=== PATIENT | male | born 1995 | race Caucasian/White ===

== ENCOUNTER 2018-12-05 20:13 | Emergency (ER) | payer BC ==
[~2018-12-05] VITALS: Ht 180.3 cm; Wt 73.0 kg
[2018-12-05 20:28] VITALS: Ht 180.3 cm; Wt 73.0 kg
[2018-12-05] MEDS ORDERED: SOD CHLORIDE 0.9% 1,000 ML IV STA (22:12)
[2018-12-05] MEDS ORDERED: ONDANSETRON 4 MG INJ IV STA (22:12)
[2018-12-05] MEDS ORDERED: FAMOTIDINE 20 MG INJ IV STA (22:12)
[2018-12-06] MEDS ORDERED: FAMO-96 PO (00:09)
[2018-12-06 00:21] VITALS: BP 111/70; PULSE 64; RESP 16
--- NOTE | 2018-12-06 03:53 | ERD ---
ER Documentation Chief Complaint Chief Complaint LUQ & EPIGASTRIC PAIN X 1 WEEK, + NAUSEA HPI 23-year-old male with history of GERD presents to the ED complaining of left upper quadrant and epigastric pain x1 week. He describes the pain as dull, achy and rated as 7 out of 10 intensity. Pain does not radiate. He states eating makes the pain better. He also reports feeling a little bit bloated with some nausea. No vomiting. No diarrhea. No fevers or chills. No other complaints. He states he has been eating less healthy and frozen dinners most recently. No smoking or drinking. ROS All systems reviewed and are negative except as per history of present illness. Medications Home Meds Active Scripts Famotidine* (Pepcid*) 20 Mg Tablet, 20 MG PO BID, #30 TAB Prov:MARGARET BOB PA-C 12/06/18 Allergies Allergies: Coded Allergies: No Known Allergy (Unverified , 12/04/15) PMhx/Soc Medical and Surgical Hx: pt denies Surgical Hx History of Surgery: No Anesthesia Reaction: No Hx Miscellaneous Medical Probl: Yes (GERD) Hx Alcohol Use: No Hx Substance Use: No Hx Tobacco Use: No Smoking Status: Never smoker Physical Exam Vitals Vital Signs Date Temp Pulse Resp B/P (MAP) Pulse Ox O2 O2 Flow FiO2 Time Delivery Rate 12/06/18 98.0 64 16 111/70 98 Room Air 00:21 (84) 12/05/18 97.9 69 18 129/82 99 20:28 (98) Physical Exam Const: No acute distress Head: Atraumatic Eyes: Normal Conjunctiva ENT: Normal External Ears, Nose and Mouth. Neck: Full range of motion. No meningismus. Resp: Clear to auscultation bilaterally Cardio: Regular rate and rhythm, no murmurs Abd: Soft, + mid epigastric tenderness palpation. Negative McBurney's. Negative Marin's. No rebound, no guarding. No distention. Normal bowel sounds Skin: No petechiae or rashes Back: No midline or flank tenderness Ext: No cyanosis, or edema Neur: Awake and alert Psych: Normal Mood and Affect Result Diagram: 12/05/18 2221 12/05/18 2221 Results 24 hrs Laboratory Tests Test 12/05/18 22:21 White Blood Count 5.1 10^3/ul Red Blood Count 4.48 10^6/ul Hemoglobin 13.4 g/dl Hematocrit 39.5 % Mean Corpuscular Volume 88.2 fl Mean Corpuscular Hemoglobin 29.9 pg Mean Corpuscular Hemoglobin Concent 33.9 g/dl Red Cell Distribution Width 11.4 % Platelet Count 217 10^3/UL Mean Platelet Volume 10.6 fl Immature Granulocytes % 0.000 % Neutrophils % 52.0 % Lymphocytes % 37.4 % Monocytes % 8.2 % Eosinophils % 1.6 % Basophils % 0.8 % Nucleated Red Blood Cells % 0.0 /100WBC Immature Granulocytes # 0.000 10^3/ul Neutrophils # 2.7 10^3/ul Lymphocytes # 1.9 10^3/ul Monocytes # 0.4 10^3/ul Eosinophils # 0.1 10^3/ul Basophils # 0.0 10^3/ul Nucleated Red Blood Cells # 0.0 10^3/ul Sodium Level 139 mmol/L Potassium Level 4.2 mmol/L Chloride Level 103 mmol/L Carbon Dioxide Level 25 mmol/L Anion Gap 11 Blood Urea Nitrogen 10 mg/dl Creatinine 0.74 mg/dl Est Glomerular Filtrat Rate mL/min > 60 mL/min Glucose Level 99 mg/dl Calcium Level 10.0 mg/dl Total Bilirubin 2.9 mg/dl Direct Bilirubin 0.00 mg/dl Indirect Bilirubin 2.9 mg/dl Aspartate Amino Transf (AST/SGOT) 25 IU/L Alanine Aminotransferase (ALT/SGPT) 30 IU/L Alkaline Phosphatase 68 IU/L Total Protein 8.0 g/dl Albumin 5.2 g/dl Globulin 2.80 g/dl Albumin/Globulin Ratio 1.85 Lipase 77 U/L Current Medications Medications Dose Sig/Shai Start Time Status Last (Trade) Ordered Route PRN Stop Time Admin Dose Reason Admin Sodium 1,000 ml @ Q1H STAT 12/05/18 DC 12/05/18 Chloride 1,000 mls/hr IV 22:12 22:29 12/05/18 23:11 Ondansetron 4 mg ONCE STAT 12/05/18 DC 12/05/18 HCl (Zofran IV 22:12 22:29 Inj) 12/05/18 22:13 Famotidine 20 mg ONCE STAT 12/05/18 DC 12/05/18 (Pepcid Iv) IV 22:12 22:29 12/05/18 22:13 Procedures/MDM LABS & DIAGNOSTIC IMAGING: CBC: no e/o of systemic infection or severe anemia CMP: no e/o severe acidosis, alkalosis, renal failure, diabetic ketoacidosis, liver disease The patient's lipase is normal and indicative of no pancreatitis. PROCEDURE: US Abdomen (Right upper quadrant). CLINICAL INDICATION: Abdominal Pain TECHNIQUE: Multiple real-time longitudinal and transverse images were acquired of the patient's right upper quadrant using a curved array transducer. COMPARISON: None. FINDINGS: Liver: The liver measures 15.4 cm in length. Liver demonstrates normal echogenicity and echotexture. No focal mass lesions are seen. No intrahepatic biliary dilatation is seen. Gallbladder: No gallstones are identified within the gallbladder. There is no pericholecystic fluid or gallbladder wall thickening. No sonographic Marin's tenderness identified. Pancreas: The visualized portions of the pancreas are unremarkable. Common bile duct: measures 2.6 mm in maximal dimension. Portal vein: The portal vein is patent with hepatopetal flow. Right Kidney: The right kidney measures 11.0 cm. There is no evidence of hydronephrosis. There are no kidney stones. IMPRESSION: Unremarkable right upper quadrant sonogram. ED COURSE: The patient was given IV fluids, Zofran, Pepcid The medication was well tolerated and the patient had market improvement in symptoms. The patient remained stable throughout ED course. MEDICAL DECISION MAKIN-year-old male presents with epigastric abdominal pain. Differential diagnosis includes appendicitis, diverticulitis, cholecystitis, nephrolithais and other intra-abdominal medical and surgical concerns. I have reviewed the patients lab studies and imaging as well as multiple examinations of the abdomen. His vital signs are stable. His lab work here is unremarkable. Gallbladder ultrasound is negative for gallstones. History and physical is most consistent with gastritis versus GERD. Patient felt much better status post IV fluids, Zofran and Pepcid. Patient was discharged home with Pepcid. Also recommended dietary mod ifications. He was told to follow-up with his primary care provider for possible referral to GI specialist for endoscopy. Strict return precautions were discussed. PRESCRIPTIONS: Pepcid SPECIALIST FOLLOW UP RECOMMENDED: None Patient has been advised to follow up with primary care in 1-2 days. Departure Diagnosis: Primary Impression: Epigastric abdominal pain Condition: Stable Patient Instructions: Gastritis (Adult) Referrals: [facility] YOU HAVE RECEIVED A MEDICAL SCREENING EXAM AND THE RESULTS INDICATE THAT YOU DO NOT HAVE A CONDITION THAT REQUIRES URGENT TREATMENT IN THE EMERGENCY DEPARTMENT. FURTHER EVALUATION AND TREATMENT OF YOUR CONDITION CAN WAIT UNTIL YOU ARE SEEN IN YOUR DOCTORS OFFICE WITHIN THE NEXT 1-2 DAYS. IT IS YOUR RESPONSIBILITY TO MAKE AN APPOINTMENT FOR FOLOW-UP CARE. IF YOU HAVE A PRIMARY DOCTOR --you should call your primary doctor and schedule an appointment IF YOU DO NOT HAVE A PRIMARY DOCTOR YOU CAN CALL OUR PHYSICIAN REFERRAL HOTLINE AT IF YOU CAN NOT AFFORD TO SEE A PHYSICIAN YOU CAN CHOSE FROM THE FOLLOWING [facility] [address] [facility] [facility] [address] [facility] [facility] [address] [facility] [facility] [address] [facility] [facility] [address] [facility]. [facility]. [address] [facility]. [facility] YOU HAVE RECEIVED A MEDICAL SCREENING EXAM AND THE RESULTS INDICATE THAT YOU DO NOT HAVE A CONDITION THAT REQUIRES URGENT TREATMENT IN THE EMERGENCY DEPARTMENT. FURTHER EVALUATION AND TREATMENT OF YOUR CONDITION CAN WAIT UNTIL YOU ARE SEEN IN YOUR DOCTORS OFFICE WITHIN THE NEXT 1-2 DAYS. IT IS YOUR RESPONSIBILITY TO MAKE AN APPOINTMENT FOR FOLOW-UP CARE. IF YOU HAVE A PRIMARY DOCTOR --you should call your primary doctor and schedule and appointment IF YOU DO NOT HAVE A PRIMARY DOCTOR YOU CAN CALL OUR PHYSICIAN REFERRAL HOTLINE AT . IF YOU CAN NOT AFFORD TO SEE A PHYSICIAN YOU CAN CHOSE FROM THE FOLLOWING [facility] INSTITUTIONS: [facility] [address] [place] [address] [facility] [address] [place] [address] [facility] [address] [place] [address] Additional Instructions: Call your primary care doctor TOMORROW for an appointment during the next 2-4 days and bring all the information and medications prescribed. If the symptoms get worse and your provider is unavailable, return to the Emergency Department immediately. MARGARET BOB PA-C Dec 06, 2018 03:53
== END 2018-12-06 00:21 | disposition home or self-care (01) ==
LOC: FTE 20:13
DX: R10.13 Epigastric pain (principal)
CPT/HCPCS: 36415; 76705; 80053; 83690; 85025; 96374; 96375; 99285; J2405; J7030

== ENCOUNTER 2018-12-10 21:56 | Emergency (ER) | payer BC ==
[~2018-12-10] VITALS: Ht 180.3 cm; Wt 68.4 kg
[~2018-12-10 21:56] MED LIST: FAMO-96 PO
[2018-12-10 21:59] VITALS: Ht 180.3 cm; Wt 68.4 kg
--- NOTE | 2018-12-10 22:54 | ERD ---
ER Documentation Chief Complaint Chief Complaint mid ab pain going to back x 7 days w/ N/V/D HPI Patient is a 23 years old male with no known PMHx presenting to the clinic for persistent epigastric pain. Patient was seen and evaluated for similar symptoms on 12/05/18 with unremarkable CBC, CMP, Lipase, and abdominal ultrasound. Patient was given Pepcid without resolution. Patient reports of nausea and chills; denies fever, night sweats, emesis, diarrhea, hematochezia, melena, dysuria, urinary frequency, dizziness. Patient admits to stress and anxiety but denies suicidal ideation. Patient reports loss of appetite after leaving the [employer] 2 months ago. ROS All systems reviewed and are negative except as per history of present illness. Medications Home Meds Active Scripts Pantoprazole* (Protonix*) 40 Mg Tablet.dr, 40 MG PO DAILY, #20 TAB Prov:LORENA PIERSON PA-C 12/10/18 Famotidine* (Pepcid*) 20 Mg Tablet, 20 MG PO BID, #30 TAB Prov:MARGARET BOB PA-C 12/06/18 Allergies Allergies: Coded Allergies: No Known Allergy (Unverified , 12/04/15) PMhx/Soc Medical and Surgical Hx: pt denies Surgical Hx History of Surgery: No Anesthesia Reaction: No Hx Neurological Disorder: No Hx Respiratory Disorders: No Hx Cardiac Disorders: No Hx Psychiatric Problems: No Hx Miscellaneous Medical Probl: Yes (GERD) Hx Alcohol Use: No Hx Substance Use: No Hx Tobacco Use: No Smoking Status: Never smoker Physical Exam Vitals Vital Signs Date Temp Pulse Resp B/P (MAP) Pulse Ox O2 O2 Flow FiO2 Time Delivery Rate 12/10/18 97.0 89 18 139/76 99 21:59 (97) Physical Exam Const: No acute distress Head: Atraumatic Eyes: Normal Conjunctiva Neck: Full range of motion. No meningismus. Resp: Clear to auscultation bilaterally Cardio: Regular rate and rhythm, no murmurs Abd: Soft, non tender, non distended. Normal bowel sounds. Negative Marin sign, Rovsing sign, McBurney's point tenderness, no guarding, no rebound tenderness, negative Garnett sign, negative Toussaint Jorge sign. Skin: No petechiae or rashes Back: No midline or flank tenderness. Negative CVAT. Neur: Awake and alert Psych: Normal Mood and Affect Results 24 hrs Current Medications Medications Dose Sig/Shai Start Time Status Last (Trade) Ordered Route PRN Stop Time Admin Dose Reason Admin 650 mg ONCE ONCE 12/10/18 12/10/18 Acetaminophen PO 23:00 22:45 (Tylenol 12/10/18 23:01 Tab) 40 mg ONCE ONCE 12/10/18 12/10/18 Pantoprazole PO 23:00 22:45 (Protonix 12/10/18 23:01 Tab) Procedures/MDM Patient was seen and evaluated for persistent epigastric pain without complications. No labs or imaging required due to an unremarkable physical exam and previous labs and imaging done on 12/05/18 without any abnormalities. Patient is most likely having GI symptoms secondary to stress vs anxiety. Protonix and Tylenol PO administered in clinic. Patient is stable and ready for discharge. F/U with PCP for psychiatry and GI referral. Departure Diagnosis: Primary Impression: Abdominal pain Abdominal location: epigastric Qualified Codes: R10.13 - Epigastric pain Condition: Stable Patient Instructions: Abdominal Pain, Anxiety Reaction Referrals: [facility] Additional Instructions: Patient advised to return to the ED immediately for new or worsening symptoms. Patient advised to follow up with primary care provider in the next 24-48 hours. Patient verbalized understanding and agrees with treatment plan and course of action. If patient has no primary care they may follow up with [facility] + [address] [address] or [facility] F/U with PCP. [address] [place] [address] [address] LORENA PIERSON PA-C Dec 10, 2018 22:54
[2018-12-10] MEDS ORDERED: PANT40TA3 PO (22:55)
[2018-12-10] MEDS ORDERED: PANTOPRAZOLE (EC) 40 MG TAB PO ONE (23:00)
[2018-12-10] MEDS ORDERED: ACETAMINOPHEN 325 MG TAB PO ONE (23:00)
[2018-12-10 23:17] VITALS: BP 129/89; PULSE 65; RESP 18
== END 2018-12-10 23:18 | disposition home or self-care (01) ==
LOC: FTE 21:56
DX: R10.13 Epigastric pain (principal)
CPT/HCPCS: 99283

== ENCOUNTER 2019-01-05 20:25 | Emergency (ER) | payer BC ==
[~2019-01-05] VITALS: Ht 180.3 cm; Wt 67.4 kg
[~2019-01-05 20:25] MED LIST changes: +PANT40TA3 PO
[2019-01-05 20:36] VITALS: BP 142/83; PULSE 71; RESP 22; Ht 180.3 cm; Wt 67.4 kg
== END 2019-01-05 21:12 | disposition left against medical advice (07) ==
LOC: FTE 20:25
DX: Z53.21 Procedure and treatment not carried out due to patient leaving prior to being seen by health care provider (principal)
CPT/HCPCS: 93005